=== PATIENT | female | born 1935 | race Caucasian/White ===

== ENCOUNTER 2019-08-05 17:35 | Emergency (ER) | payer MEDICARE, OTHER, SELFPAY ==
[2019-08-05 17:39] VITALS: PULSE 85; RESP 26; TEMP 36.3; O2SAT 84; BMI 13.7
[2019-08-05 17:47] VITALS: BP 201/74; PULSE 68; RESP 20; O2SAT 94
--- NOTE | 2019-08-05 17:51 | ED_ITS ---
Entered by Maty Church, acting as scribe for HPI - SOB/Dyspnea General: Chief Complaint: Shortness of Breath/Dyspnea Stated Complaint: sob Time Seen by Provider: 08/05/19 17:51 Source: patient and EMS Mode of arrival: EMS Limitations: no limitations History of Present Illness: HPI Narrative: 83 yo female presents with shortness of breath. pt and family states this started months ago but worsened this week. pt has had a cough. pt is suppose to wear oxygen at home. pt has a hx of COPD. pt denies any other symptoms at this time. MD elicited complaint: shortness of breath and cough Pertinent past history: COPD Onset (ago): week(s) Context: recent illness Timing: progressively worsening Severity: similar to previous episodes Exacerbating factors: exertion, coughing, stress and deep breaths Relieving factors: nothing Known history of: COPD Associated symptoms: Reports cough; Deny abdominal pain, chest pain, fever(s), polyuria or vomiting Treatment prior to arrival: oxygen (EMS) Related Data: Home oxygen amount: 3 liters Review of Systems Const: Denies: fever or chills Eyes: Denies: change in vision ENMT: Denies: throat pain or mouth pain Card: Denies: chest pain Resp: Reports: shortness of breath and non-productive cough GI: Denies: abdominal pain, vomiting or diarrhea : Denies: difficulty urinating Musc: Denies: back pain or joint pain Skin/Breast: Denies: rash Neuro: Denies: headache Psych: Denies: depression Endo: Denies: excessive urination Yg/Lymph: Denies: easy bruising All/Imm: Denies: hives PFSH ED PFSH: Statuses (acute, chronic, etc) shown below reflect problem list status as previously entered and may not be historically accurate Medical History History of COPD (Acute) Social History Smoking and tobacco status: former smoker Physical Exam Const: COMMON NORMALS: no apparent distress and healthy appearing HENMT: COMMON NORMALS: normocephalic and external nose normal HEAD & SCALP: normocephalic NOSE: external nose normal and no nasal discharge (nasal dischage) Eye: COMMON NORMALS: PERRL PUPIL: Yes PERRL Neck/C-Spine: COMMON NORMALS: full ROM and no lymphadenopathy Chest: COMMONS NORMALS: inspection of chest normal Resp: OTHER: Slight bilateral wheezing. Patient is in no respiratory distress. Cardio: COMMON NORMALS: regular rate and regular rhythm RATE: regular rate RHYTHM: regular rhythm GI: COMMON NORMALS: soft to palpation PALPATION: Yes soft Extremity: COMMON NORMALS: normal to inspection, full ROM and normal capillary refill Psych: COMMON NORMALS: mental status grossly normal and cooperative Skin: COMMON NORMALS: no rashes or lesions noted GENERAL SKIN EXAM: no rashes or lesions noted Course Vital Signs: Vital signs: Vital Signs Temperature 97.4 F L 08/05/19 17:39 Pulse Rate 78 08/05/19 19:25 Respiratory Rate 18 08/05/19 19:25 Blood Pressure 139/63 08/05/19 19:25 Pulse Oximetry 95 08/05/19 19:25 MDM - SOB/Dyspnea MDM Narrative: Medical decision making narrative: Patient presents with difficulty breathing likely COPD exacerbation. She has no signs of cardiac cause or pulmonary embolism. She feels improved after breathing treatment and is in no distress here. We will start her on steroids along with Keflex. She is to follow-up with her primary care doctor in 3 to 5 days and return if wor sening. Lab Data: Labs: Lab Results 08/05/19 08/05/19 Range/Units 18:19 18:19 WBC 6.1 (4.0-10.0) 10^3/ uL RBC 3.54 L (4.1-5.3) 10^6/u L Hgb 10.5 L (11.5-15.3) g/dL Hct 33.1 L (37.0-47.0) % MCV 93.5 (81-99) fL MCH 29.7 (28.0-34.0) pg MCHC 31.7 (30.0-36.0) g/dL RDW 13.2 (12.1-15.1) % Plt Count 225 (130-400) 10^3/c mm MPV 11.2 H (7.4-10.4) fL Neut % (Auto) 65.3 % Lymph % (Auto) 21.1 % [place] % (Auto) 9.3 % Eos % (Auto) 3.3 % Baso % (Auto) 0.8 % Neut # (Auto) 4.0 (1.8-7.7) 10^3/u L Lymph # (Auto) 1.3 (0.8-4.8) 10^3/u L [place] # (Auto) 0.6 (0.2-0.9) 10^3/u L Eos # (Auto) 0.2 (0.0-0.8) 10^3/u L Baso # (Auto) 0.1 (0.0-0.1) 10^3/u L Nucleated RBC % (a uto) 0 % Nucleated RBCs # 0.0 /100WBC Sodium 131 L (136-145) mmol/L Potassium 4.5 (3.5-5.1) mmol/L Chloride 92 L (98-107) mmol/L Carbon Dioxide 33 H (22-29) mmol/L Anion Gap 10.5 (5-19) BUN 18 (8-23) mg/dL Creatinine 0.8 (0.5-0.9) mg/dL Glucose 110 H (74-106) mg/dL Calcium 9.1 (8.8-10.2) mg/Dl Total Bilirubin 0.2 (0.15-1.2) mg/dL AST 25 (0-32) U/L ALT 18 (0-33) U/L Alkaline Phosphata se 76 (35-105) IU/L NT-Pro-B Natriuret Pep 1237 H (0-450) pg/mL Total Protein 6.1 L (6.6-8.7) g/dL Albumin 3.9 (3.5-5.2) g/dL Globulin 2.2 (1.3-4.6) g/dL Imaging Data^: CXR: Attestation: I personally reviewed and interpreted this imaging study as follows: My impression: no acute abnormality Discharge Plan Discharge Patient Disposition: Home, Self-Care Clinical Impression: Acute exacerbation of chronic obstructive airways disease Condition: Stable Prescriptions: New Keflex 500 mg capsule 500 mg PO Q6H 7 Days Qty: 28 RF: 0 prednisone 50 mg tablet 50 mg PO DAILY Qty: 5 RF: 0 Discharge Orders: Discharge Order (Routine); Ordered 08/05/19 Ordered By: Lyly Andersen Referrals: Varsha Perez MD [Primary Care Provider] - 4-7 days Discharge Diet: Advance as tolerated Discharge Activity: Resume usual activity Patient Instructions: Chronic Obstructive Pulmonary Disease (ED) Discharge Date/Time: 08/05/19 19:26 Coding Level of Care Code ED Laboratory Specialist for Chg Fwlinda The documentation recorded by the Ranjit weems Bridget Annette, accurately reflects the service I personally performed and the decisions made by Ganesh mann Korby, MD
--- NOTE | 2019-08-05 17:56 | XR_ITS ---
WS: [id number] CHEST XRAY TECHNIQUE: Portable chest. CLINICAL INFORMATION: sob COMPARISON: FINDINGS: Heart: Normal cardiac silhouette. Tortuous calcified thoracic aorta. Lungs: Advanced chronic emphysematous changes. Hyperinflation. No focal pneumonia. Bones: Normal visualized bony structures. XR/XR chest 1V portable [id number] IMPRESSION: No acute chest findings
[2019-08-05] MEDS: ipratropium-albuterol 3 mL Neb INHALATION (18:21)
[2019-08-05 18:22] VITALS: PULSE 62; RESP 14; O2SAT 98
[2019-08-05 18:24] VITALS: PULSE 63; RESP 14; O2SAT 99
[2019-08-05 18:42] LABS: Basophils # 0.1 10^3/uL (0.0-0.1); Basophils % 0.8 %; Eosinophils # 0.2 10^3/uL (0.0-0.8); Eosinophils % 3.3 %; Hematocrit 33.1 % (37.0-47.0); Hemoglobin 10.5 g/dL (11.5-15.3); Lymphocytes # 1.3 10^3/uL (0.8-4.8); Lymphocytes % 21.1 %; Mean Corpuscular HGB Conc 31.7 g/dL (30.0-36.0); Mean Corpuscular Hemoglobin 29.7 pg (28.0-34.0); Mean Corpuscular Volume 93.5 fL (81-99); Mean Platelet Volume 11.2 fL (7.4-10.4); Monocytes # 0.6 10^3/uL (0.2-0.9); Monocytes % 9.3 %; Neutrophils % 65.3 %; Nucleated Red Blood Cells % 0 %; Platelet Count 225 10^3/cmm (130-400); Red Blood Count 3.54 10^6/uL (4.1-5.3); Red Cell Distribution Width 13.2 % (12.1-15.1); White Blood Count 6.1 10^3/uL (4.0-10.0)
[2019-08-05 18:57] LABS: Alanine Aminotransferase 18 U/L (0-33); Albumin Level 3.9 g/dL (3.5-5.2); Alkaline Phosphatase 76 IU/L (35-105); Anion Gap 10.5 (5-19); Aspartate Amino Transferase 25 U/L (0-32); Blood Urea Nitrogen 18 mg/dL (8-23); Calcium 9.1 mg/Dl (8.8-10.2); Carbon Dioxide 33 mmol/L (22-29); Chloride 92 mmol/L (98-107); Globulin 2.2 g/dL (1.3-4.6); Glucose 110 mg/dL (74-106); NT Pro B Type Natriuretic Pept 1237 pg/mL (0-450); Potassium 4.5 mmol/L (3.5-5.1); Sodium 131 mmol/L (136-145); Total Bilirubin 0.2 mg/dL (0.15-1.2); Total Protein 6.1 g/dL (6.6-8.7)
[2019-08-05 19:11] VITALS: BP 133/75; PULSE 69; RESP 23; O2SAT 99
[2019-08-05] MEDS: FUROsemide 10 mg/mL SDV 4mL 40 MG IVP (19:15)
[2019-08-05 19:25] VITALS: BP 139/63; PULSE 78; RESP 18; O2SAT 95
== END 2019-08-05 19:26 | disposition home or self-care (01) ==
LOC: ER 19:18
PROVIDERS: Emergency Provider Emergency Medicine; Family Provider Internal Medicine; PCP Internal Medicine
DX: J44.1 Chronic obstructive pulmonary disease with (acute) exacerbation (principal); Z87.891 Personal history of nicotine dependence
CPT/HCPCS: 36415; 71045; 80053; 83880; 85025; 94640; 96374; 99281; J1940; J2930; J7611

== ENCOUNTER 2019-09-26 18:36 | Observation (INO) | payer MEDICARE, OTHER, SELFPAY ==
[2019-09-26] VITALS (26 sets, daily range): BP systolic 99–139; BP diastolic 47–77; PULSE 86–103; RESP 14–22; TEMP 36.5; O2SAT 87–100; BMI 15.0
--- NOTE | 2019-09-26 18:37 | ED_ITS ---
Entered by Dee Morton, acting as scribe for Steff Melchor HPI - SOB/Dyspnea General: Chief Complaint: Shortness of Breath/Dyspnea Stated Complaint: SHORTNESS OF BREATH Time Seen by Provider: 09/26/19 18:37 Source: EMS Mode of arrival: EMS Limitations: no limitations History of Present Illness: HPI Narrative: 83 yo f came to the er by [facility] for Shortness of breath. Onset has been on and off for a few weeks. Pt states that she just keeps getting worse. Pt states that she is not in pain just having trouble breathing and is not getting any better. Patient states that she is coughing up yellow-green sputum and has had a subjective fever at home. MD elicited complaint: shortness of breath Timing: constant Severity: moderate Exacerbating factors: lying flat Relieving factors: oxygen and other (breathing treatments) Treatment prior to arrival: oxygen and other (breathing treatments) Related Data: Home oxygen amount: 3 liters Review of Systems General: Reports: ROS unobtainable due to medical condition (Respiratory Distress) and other (negative unless marked) REPLACED BY [facility] ED PFSH: Medical History History of COPD Hyperkalemia Hypertension Respiratory failure Surgical History H/O: hysterectomy History of tonsillectomy Social History Smoking and tobacco status: former smoker Physical Exam Const: COMMON NORMALS: oriented x3 EXAM LIMITATIONS: no altered mental status GENERAL APPEARANCE: cooperative, in distress and appears older than stated age NUTRITIONAL APPEARANCE: cachectic ORIENTATION/CONSCIOUSNESS: Yes awake HENMT: COMMON NORMALS: normocephalic, head/scalp atraumatic, hearing grossly normal bilaterally, external ears normal, EAC's normal, external nose normal and moist oral mucous membranes HEAD & SCALP: normal to inspection, normocephalic and atraumatic FACE & SINUS: normal facial exam and face symmetric NOSE: external nose normal and nares normal EXTERNAL EAR: Yes external ears normal EXTERNAL AUDITORY CANAL: EAC's normal MOUTH: oral and palatal mucosa normal and tongue normal Eye: COMMON NORMALS: PERRL, EOMs intact bilaterally, conjunctivae normal and no scleral icterus GENERAL EYE: normal appearance of both eyes and normal light reflex CONJUNCTIVA: Yes conjunctivae normal SCLERA: sclerae normal CORNEA: Yes corneas normal PUPIL: Yes PERRL DIRECT OPHTHALMOSCOPY: Yes normal light reflex Neck/C-Spine: COMMON NORMALS: full ROM, no lymphadenopathy, supple, no meninge al signs and no JVD GENERAL: Yes normal visual inspection and Yes trachea midline CERVICAL SPINE: Yes cervical ROM normal Chest: COMMONS NORMALS: inspection of chest normal and palpation of chest normal Resp: EFFORT & INSPECTION: Yes paradoxical thoraco-abdominal movements and Yes audible wheezes AUSCULTATION: rhonchi, wheezes and diminished lung sounds Cardio: COMMON NORMALS: no JVD, regular rate, regular rhythm, S1 normal heart sound, S2 normal heart sound, no gallops, no clicks, no murmurs and no rub JUGULAR VENOUS DISTENTION: no JVD RATE: regular rate RHYTHM: regular rhythm HEART SOUNDS: S1 normal and S2 normal GI: COMMON NORMALS: soft to palpation, non-tender, no hepatosplenomegaly and no masses INSPECTION: Yes normal to inspection PALPATION: Yes soft and Yes no hepatosplenomegaly : COMMON NORMALS: Yes no CVA tenderness BLADDER/KIDNEY EXAM: Yes no CVA tenderness Back/Pelvis: COMMON NORMALS: no CVA tenderness, thoracic and lumbar spine normal to inspection, no thoracic nor lumbar tenderness and thoraco-lumbar ROM normal Extremity: COMMON NORMALS: normal to inspection, full ROM, normal capillary refill, no joint enlargement, no clubbing, cyanosis or edema and no calf tenderness Neuro: COMMON NORMALS: oriented x3, CN's II-XII intact bilaterally, moves all extremities, no focal motor deficits and no sensory deficits noted MENINGEAL SIGNS: Yes no meningeal signs Psych: COMMON NORMALS: mental status grossly normal, thought process normal, cooperative, affect normal, speech normal and activity/motor behavior normal SPEECH: Yes normal speech THOUGHT PROCESS: normal thought process Skin: COMMON NORMALS: no rashes or lesions noted, skin turgor normal, no jaundice, no petechiae and no mottling GENERAL SKIN EXAM: no rashes or lesions noted and turgor normal Course Vital Signs: Vital signs: Vital Signs Temperature 97.7 F 09/26/19 18:36 Pulse Rate 88 09/26/19 21:35 Respiratory Rate 16 09/26/19 21:35 Blood Pressure 117/72 09/26/19 21:35 Pulse Oximetry 93 09/26/19 21:35 MDM - SOB/Dyspnea MDM Narrative: Medical decision making narrative: The patient is markedly better after her breathing treatments. She is no longer in respiratory distress. She still has audible wheezing at times and expiratory wheezing on exam. She has a community-acquired pneumonia on CAT scan but no PE. I reviewed the case in full with Dr. Mak who is agreeable to admission. Lab Data: Attestation: I reviewed the patient's lab results. Labs: Lab Results 09/26/19 09/26/19 09/26/19 Range/Units 19:05 19:12 19:12 WBC 17.9 H (4.0-10.0) 10^3/ uL RBC 3.37 L (4.1-5.3) 10^6/u L Hgb 9.8 L (11.5-15.3) g/dL Hct 32.0 L (37.0-47.0) % MCV 95.0 (81-99) fL MCH 29.1 (28.0-34.0) pg MCHC 30.6 (30.0-36.0) g/dL RDW 14.9 (12.1-15.1) % Plt Count 284 (130-400) 10^3/c mm MPV 11.2 H (7.4-10.4) fL Neut % (Auto) 87.7 % Lymph % (Auto) 4.7 % Burnet % (Auto) 6.7 % Eos % (Auto) 0.1 % Baso % (Auto) 0.2 % Neut # (Auto) 15.7 H (1.8-7.7) 10^3/u L Lymph # (Auto) 0.8 (0.8-4.8) 10^3/u L [place]et # (Auto) 1.2 H (0.2-0.9) 10^3/u L Eos # (Auto) 0.0 (0.0-0.8) 10^3/u L Baso # (Auto) 0.0 (0.0-0.1) 10^3/u L Nucleated RBC % (a uto) 0 % Nucleated RBCs # 0.0 /100WBC D-Dimer (0-0.59) ug/mIFE U Specimen Type Arterial Sample Site Brachial, left ABG pH 7.45 (7.35-7.45) ABG pCO2 39.2 (35-45) mmHg ABG pO2 55.7 L (80.0-100.0) mmH g ABG HCO3 27.5 H (22-26) mmol/L ABG Base Excess 3.3 H (-2.0-2.0) mmol/ L Edilson Test N/a Hematocrit 34.4 L (37-47) % O2 Delivery Device Nc O2 Liters/Min 2.0 % Loading Inspector ID jmn Sodium 134 L (136-145) mmol/L Potassium 3.9 (3.5-5.1) mmol/L Chloride 94 L (98-107) mmol/L Carbon Dioxide 26 (22-29) mmol/L Anion Gap 17.9 (5-19) BUN 16 (8-23) mg/dL Creatinine 0.9 (0.5-0.9) mg/dL Glucose 167 H (65-115) mg/dL Lactic Acid (0.5-2.2) mmol/L Calcium 9.7 (8.5-10.5) mg/dL Magnesium 1.9 (1.7-2.3) mg/dL Total Bilirubin 0.3 (0.15-1.2) mg/dL AST 22 (0-32) U/L ALT 15 (0-33) U/L Alkaline Phosphata se 103 (35-105) IU/L Troponin T Baselin e (0-10) ng/mL Troponin T 120 Min coquille (0-10) ng/mL Delta Troponin T (0-10) ABS# NT-Pro-B Natriuret Pep 1456 H (0-450) pg/mL Total Protein 6.6 (6.6-8.7) g/dL Albumin 3.5 (3.5-5.2) g/dL Globulin 3.1 (1.3-4.6) g/dL 09/26/19 09/26/19 09/26/19 Range/Units 19:12 19:12 19:12 WBC (4.0-10.0) 10^3/ uL RBC (4.1-5.3) 10^6/u L Hgb (11.5-15.3) g/dL Hct (37.0-47.0) % MCV (81-99) fL MCH (28.0-34.0) pg MCHC (30.0-36.0) g/dL RDW (12.1-15.1) % Plt Count (130-400) 10^3/c mm MPV (7.4-10.4) fL Neut % (Auto) % Lymph % (Auto) % Burnet % (Auto) % Eos % (Auto) % Baso % (Auto) % Neut # (Auto) (1.8-7.7) 10^3/u L Lymph # (Auto) (0.8-4.8) 10^3/u L Burnet # (Auto) (0.2-0.9) 10^3/u L Eos # (Auto) (0.0-0.8) 10^3/u L Baso # (Auto) (0.0-0.1) 10^3/u L Nucleated RBC % (a uto) % Nucleated RBCs # /100WBC D-Dimer 1.71 H (0-0.59) ug/mIFE U Specimen Type Sample Site ABG pH (7.35-7.45) ABG pCO2 (35-45) mmHg ABG pO2 (80.0-100.0) mmH g ABG HCO3 (22-26) mmol/L ABG Base Excess (-2.0-2.0) mmol/ L Edilson Test Hematocrit (37-47) % O2 Delivery Device O2 Liters/Min % Loading Inspector ID Sodium (136-145) mmol/L Potassium (3.5-5.1) mmol/L Chloride (98-107) mmol/L Carbon Dioxide (22-29) mmol/L Anion Gap (5-19) BUN (8-23) mg/dL Creatinine (0.5-0.9) mg/dL Glucose (65-115) mg/dL Lactic Acid 2.6 H (0.5-2.2) mmol/L Calcium (8.5-10.5) mg/dL Magnesium (1.7-2.3) mg/dL Total Bilirubin (0.15-1.2) mg/dL AST (0-32) U/L ALT (0-33) U/L Alkaline Phosphata se (35-105) IU/L Troponin T Baselin e 26 H (0-10) ng/mL Troponin T 120 Min coquille (0-10) ng/mL Delta Troponin T (0-10) ABS# NT-Pro-B Natriuret Pep (0-450) pg/mL Total Protein (6.6-8.7) g/dL Albumin (3.5-5.2) g/dL Globulin (1.3-4.6) g/dL 09/26/19 Range/Units 20:38 WBC (4.0-10.0) 10^3/ uL RBC (4.1-5.3) 10^6/u L Hgb (11.5-15.3) g/dL Hct (37.0-47.0) % MCV (81-99) fL MCH (28.0-34.0) pg MCHC (30.0-36.0) g/dL RDW (12.1-15.1) % Plt Count (130-400) 10^3/c mm MPV (7.4-10.4) fL Neut % (Auto) % Lymph % (Auto) % Burnet % (Auto) % Eos % (Auto) % Baso % (Auto) % Neut # (Auto) (1.8-7.7) 10^3/u L Lymph # (Auto) (0.8-4.8) 10^3/u L Burnet # (Auto) (0.2-0.9) 10^3/u L Eos # (Auto) (0.0-0.8) 10^3/u L Baso # (Auto) (0.0-0.1) 10^3/u L Nucleated RBC % (a uto) % Nucleated RBCs # /100WBC D-Dimer (0-0.59) ug/mIFE U Specimen Type Sample Site ABG pH (7.35-7.45) ABG pCO2 (35-45) mmHg ABG pO2 (80.0-100.0) mmH g ABG HCO3 (22-26) mmol/L ABG Base Excess (-2.0-2.0) mmol/ L Edilson Test Hematocrit (37-47) % O2 Delivery Device O2 Liters/Min % Loading Inspector ID Sodium (136-145) mmol/L Potassium (3.5-5.1) mmol/L Chloride (98-107) mmol/L Carbon Dioxide (22-29) mmol/L Anion Gap (5-19) BUN (8-23) mg/dL Creatinine (0.5-0.9) mg/dL Glucose (65-115) mg/dL Lactic Acid (0.5-2.2) mmol/L Calcium (8.5-10.5) mg/dL Magnesium (1.7-2.3) mg/dL Total Bilirubin (0.15-1.2) mg/dL AST (0-32) U/L ALT (0-33) U/L Alkaline Phosphata se (35-105) IU/L Troponin T Baselin e (0-10) ng/mL Troponin T 120 Min coquille 28.59 H (0-10) ng/mL Delta Troponin T 2.59 (0-10) ABS# NT-Pro-B Natriuret Pep (0-450) pg/mL Total Protein (6.6-8.7) g/dL Albumin (3.5-5.2) g/dL Globulin (1.3-4.6) g/dL Imaging Data^: CT Chest: Radiologist's impression: [place] [address] CT Scan Report Signed Patient: Maria Isabel Mueller Unit #: [id number] : [id number] Age/Sex: 83 / F ADM Date: 09/26/19 Loc: ER Room/Bed: Attending Dr: Ordering Provider/Ordering MD: Steff Melchor DO Date of Service: 09/26/19 Procedure(s): CT angio chest PE protcl [id number] Accession Number(s): [id number] Report Number: [id number] PROCEDURE INFORMATION: Exam: CT Angiography Chest With Contrast Exam date and time: 09/26/2019 7:58 PM Age: 83 years old Clinical indication: Chest pain; Type not specified; Patient HX: C/O cp - cough and SOB; Additional info: Dyspnea, positive d-dimer TECHNIQUE: Imaging protocol: Computed tomographic angiography of the chest with intravenous contrast. 3D rendering: MIP and/or 3D reconstructed images were created by the technologist. Total DLP: 351.2 mGy-cm Radiation optimization: All CT scans at this facility use at least one of these dose optimization techniques: automated exposure control; mA and/or kV adjustment per patient size (includes targeted exams where dose is matched to clinical indication); or iterative reconstruction. Contrast material: VISI 320; Contrast volume: 75 ml; Contrast route: 20G; COMPARISON: CTA Chest-Pulmonary Emb [id number] 09/08/2017 11:23 AM FINDINGS: Pulmonary arteries: No visible pulmonary embolism. No visible pulmonary arterial thrombus. Aorta: Thoracic aorta nonaneurysmal. Extensive arterial sclerotic disease. Inferior vena cava: Early contrast filling in the inferior vena cava suggesting right sided heart failure. Lungs: Advanced centrilobular emphysema. Senile fibrosis. New subsegmental wedge shaped alveolar airspace disease lateral segment right middle lobe. This could reflect atelectasis and/or pneumonia. Suggest follow-up exam with in the next 3-6 months to re-evaluate to exclude a potential for underlying neoplasm. New 8 mm subpleural mixed ground-glass and partial nodular airspace process posterior basal segment left lower lobe with adjacent tiny satellite nodule under [address] at 3-6 months. Subsequent management based on the most suspicious nodule(s). (Susan et al., Fleischner Society, 2017). Pleural space: Unremarkable. No pneumothorax. No pleural effusion. Heart: Cardiomegaly with marked left ventricular hypertrophy. Coronary artery disease. Prominent left atrial appendage. Liver: Calcified granulomas of the liver and spleen. Splenomegaly. Pancreas: Adrenal glands and visualized portions of the pancreas appear stable since last evaluation. Kidneys and ureters: Stable angiomyolipoma inferior pole left kidney. Lymph nodes: Unremarkable. No enlarged lymph nodes. Bones/joints: Osteopenia/osteoporosis. Age-appropriate degenerative disease. No visible osteolytic or osteoblastic destructive process. Soft tissues: Unremarkable. CT/CT angio chest PE protcl [id number] IMPRESSION: 1. No visible pulmonary embolism. 2. Advanced centrilobular emphysema. 3. New subsegmental wedge-shaped alveolar airspace disease process lateral segment right middle lobe. This could reflect atelectasis and/or pneumonia. Suggest follow-up exam in 3-6 months. 4. New 8 mm subpleural mixed ground-glass and partial nodular airspace process left lower lobe with adjacent satellite nodule.Recommend CT at 3-6 months. Subsequent management based on the most suspicious nodule(s). (Susan et al., Fleischner Society, 2017). 5. Stable angiomyolipoma inferior pole left kidney. 6. Calcified granulomas of antecedent disease. 7. Cardiomegaly with marked left ventricular hypertrophy. 8. Coronary artery disease. 9. Evidence of right-sided cardiac failure. 10. Numerous other non urgent/nonemergent, chronic, and age related findings. Radiation Dose CTDIVOL = (mGy): DLP = 351.2 (mGy-cm) Dictated By: Kemal Kline Signed By: Kemal Kline Signed Date/Time: 09/26/192055 DD/ 53 EKG Data^: EKG 1: Attestation: I personally reviewed and interpreted this EKG as follows: EKG Interpretation Date: 09/26/19 EKG interpretation time: 18:53 Interpretation: Normal sinus rhythm at 94 beats a minute, nonspecific ST and T wave changes, LVH. EKG 2: EKG Interpretation Date: 09/26/19 EKG interpretation time: 20:44 Interpretation: Normal sinus rhythm at 87 beats a minute, nonspecific ST-T wave changes, LVH. Discharge Plan Discharge Patient Disposition: Placed in Observation Clinical Impression: Acute exacerbation of chronic obstructive airways disease Community acquired pneumonia Qualifiers: Laterality: right Lung location: middle lobe of lung Qualified Code(s): J18.9 - Pneumonia, unspecified organism Condition: Stable Referrals: Varsha Perez MD [Primary Care Provider] - Coding Level of Care Code ED Yard Goods Salesperson for Chg Fwd Exam Comprehensive The documentation recorded by the Praveen weems Stephanie Lyn, accurately reflects the service I personally performed and the decisions made by Jill mann Eli N Sep 26, 2019 18:36
--- NOTE | 2019-09-26 18:39 | XR_ITS ---
WS: [id number] XR chest 1V portable [id number] REASON FOR EXAM: cough FINDINGS: Right middle lobe now shows patchy alveolar infiltrates not seen on previous exam July [id number]. The lung hinojosa show hyperaeration decreased vascularity consistent with chronic obstructive pulmonar y disease. The heart is small there is arteriosclerotic changes seen. XR/XR chest 1V portable [id number] IMPRESSION: Early right middle lobe pneumonia. Chronic obstructive pulmonary disease Arteriosclerotic changes.
--- NOTE | 2019-09-26 18:40 | ECG_ITS ---
Measurements Intervals [place] Rate: 94 P: 83 MD: 117 QRS: 70 QRSD: 86 T: 89 QT: 367 QTc: 459 SINUS RHYTHM WITH SHORT MD INTERVAL WITH OCCASIONAL SUPRAVENTRICULAR PREMATURE COMPLEXES MINIMAL VOLTAGE CRITERIA FOR LVH, CONSIDER NORMAL VARIANT MODERATE ST DEPRESSION Compared to ECG 06/03/2019 23:04:14 Short MD interval now present ST (T wave) deviation now present T-wave abnormality no longer present Electronically Signed On 09-27-2019 8:16:59 TAX COLLECTION COORDINATOR by Peyton Holcomb M.D. [email or web address]
[2019-09-26] MEDS: ipratropium-albuterol 3 mL Neb 9 ML INHALATION (18:59)
--- NOTE | 2019-09-26 19:04 | PC.NURSE ---
Report received from ROWAN Herman and care transferred to ROWAN Amaya
[2019-09-26 19:16] LABS: ABG PCO2 39.2 mmHg (35-45); ABG PH Result 7.45 (7.35-7.45); Arterial Blood Gas Hematocrit 34.4 % (37-47); Base Excess ABG 3.3 mmol/L (-2.0-2.0); Blood Gas Sample Site Brachial, left; Blood Gas Sample Type Arterial; HCO3 ABG 27.5 mmol/L (22-26); Oxygen Device NC; PO2 ABG 55.7 mmHg (80.0-100.0)
[2019-09-26 19:23] LABS: Basophils % 0.2 %; Eosinophils % 0.1 %; Hemoglobin 9.8 g/dL (11.5-15.3); Lymphocytes # 0.8 10^3/uL (0.8-4.8); Lymphocytes % 4.7 %; Mean Corpuscular HGB Conc 30.6 g/dL (30.0-36.0); Mean Corpuscular Hemoglobin 29.1 pg (28.0-34.0); Mean Platelet Volume 11.2 fL (7.4-10.4); Monocytes # 1.2 10^3/uL (0.2-0.9); Monocytes % 6.7 %; Neutrophils # 15.7 10^3/uL (1.8-7.7); Neutrophils % 87.7 %; Nucleated Red Blood Cells % 0 %; Platelet Count 284 10^3/cmm (130-400); Red Blood Count 3.37 10^6/uL (4.1-5.3); Red Cell Distribution Width 14.9 % (12.1-15.1); White Blood Count 17.9 10^3/uL (4.0-10.0)
[2019-09-26 19:46] LABS: Lactic Sepsis W/Reflex 2.6 mmol/L (0.5-2.2)
[2019-09-26 19:47] LABS: D Dimer 1.71 ug/mIFEU (0-0.59)
[2019-09-26 19:50] LABS: Troponin(5th) Baseline 26 ng/mL (0-10)
--- NOTE | 2019-09-26 19:57 | CTR_ITS ---
PROCEDURE INFORMATION: Exam: CT Angiography Chest With Contrast Exam date and time: 09/26/2019 7:58 PM Age: 83 years old Clinical indication: Chest pain; Type not specified; Patient HX: C/O cp - cough and SOB; Additional info: Dyspnea, positive d-dimer TECHNIQUE: Imaging protocol: Computed tomographic angiography of the chest with intravenous contrast. 3D rendering: MIP and/or 3D reconstructed images were created by the technologist. Total DLP: 351.2 mGy-cm Radiation optimization: All CT scans at this facility use at least one of these dose optimization techniques: automated exposure control; mA and/or kV adjustment per patient size (includes targeted exams where dose is matched to clinical indication); or iterative reconstruction. Contrast material: VISI 320; Contrast volume: 75 ml; Contrast route: 20G; COMPARISON: CTA Chest-Pulmonary Emb [id number] 09/08/2017 11:23 AM FINDINGS: Pulmonary arteries: No visible pulmonary embolism. No visible pulmonary arterial thrombus. Aorta: Thoracic aorta nonaneurysmal. Extensive arterial sclerotic disease. Inferior vena cava: Early contrast filling in the inferior vena cava suggesting right sided heart failure. Lungs: Advanced centrilobular emphysema. Senile fibrosis. New subsegmental wedge shaped alveolar airspace disease lateral segment right middle lobe. This could reflect atelectasis and/or pneumonia. Suggest follow-up exam with in the next 3-6 months to re-evaluate to exclude a potential for underlying neoplasm. New 8 mm subpleural mixed ground-glass and partial nodular airspace process posterior basal segment left lower lobe with adjacent tiny satellite nodule under [address] at 3-6 months. Subsequent management based on the most suspicious nodule(s). (Susan et al., Fleischner Society, 2017). Pleural space: Unremarkable. No pneumothorax. No pleural effusion. Heart: Cardiomegaly with marked left ventricular hypertrophy. Coronary artery disease. Prominent left atrial appendage. Liver: Calcified granulomas of the liver and spleen. Splenomegaly. Pancreas: Adrenal glands and visualized portions of the pancreas appear stable since last evaluation. Kidneys and ureters: Stable angiomyolipoma inferior pole left kidney. Lymph nodes: Unremarkable. No enlarged lymph nodes. Bones/joints: Osteopenia/osteoporosis. Age-appropriate degenerative disease. No visible osteolytic or osteoblastic destructive process. Soft tissues: Unremarkable. CT/CT angio chest PE protcl [id number] IMPRESSION: 1. No visible pulmonary embolism. 2. Advanced centrilobular emphysema. 3. New subsegmental wedge-shaped alveolar airspace disease process lateral segment right middle lobe. This could reflect atelectasis and/or pneumonia. Suggest follow-up exam in 3-6 months. 4. New 8 mm subpleural mixed ground-glass and partial nodular airspace process left lower lobe with adjacent satellite nodule.Recommend CT at 3-6 months. Subsequent management based on the most suspicious nodule(s). (Susan et al., Fleischner Society, 2017). 5. Stable angiomyolipoma inferior pole left kidney. 6. Calcified granulomas of antecedent disease. 7. Cardiomegaly with marked left ventricular hypertrophy. 8. Coronary artery disease. 9. Evidence of right-sided cardiac failure. 10. Numerous other non urgent/nonemergent, chronic, and age related findings. Radiation Dose CTDIVOL = (mGy): DLP = 351.2 (mGy-cm)
[2019-09-26 19:58] LABS: Alanine Aminotransferase 15 U/L (0-33); Albumin Level 3.5 g/dL (3.5-5.2); Alkaline Phosphatase 103 IU/L (35-105); Anion Gap 17.9 (5-19); Aspartate Amino Transferase 22 U/L (0-32); Blood Urea Nitrogen 16 mg/dL (8-23); Calcium 9.7 mg/dL (8.5-10.5); Carbon Dioxide 26 mmol/L (22-29); Chloride 94 mmol/L (98-107); Globulin 3.1 g/dL (1.3-4.6); Glucose 167 mg/dL (65-115); Magnesium 1.9 mg/dL (1.7-2.3); NT Pro B Type Natriuretic Pept 1456 pg/mL (0-450); Potassium 3.9 mmol/L (3.5-5.1); Sodium 134 mmol/L (136-145); Total Bilirubin 0.3 mg/dL (0.15-1.2); Total Protein 6.6 g/dL (6.6-8.7)
[2019-09-26] MEDS: piperacillin-tazobactam 3.375 GM in sodium chloride 0.9% (plus) 50 ML IV (20:01)
--- NOTE | 2019-09-26 20:15 | PC.NURSE ---
PATIENT TO CT
[2019-09-26] MEDS: iodixanol 320 mg/mL 100mL Btl IV (20:30)
--- NOTE | 2019-09-26 20:40 | ECG_ITS ---
Measurements Intervals [place] Rate: 87 P: 76 WV: 123 QRS: 62 QRSD: 85 T: 85 QT: 379 QTc: 458 SINUS RHYTHM WITH OCCASIONAL VENTRICULAR PREMATURE COMPLEXES POSSIBLE LEFT ATRIAL ENLARGEMENT [-0.1mV P WAVE IN V1/V2] POSSIBLE LEFT VENTRICULAR HYPERTROPHY [VOLTAGE CRITERIA PLUS LAE OR QRS WIDENING] MODERATE ST DEPRESSION [0.05+ mV ST DEPRESSION] Compared to ECG 06/03/2019 23:04:14 Ventricular premature complex(es) now present ST (T wave) deviation now present T-wave abnormality no longer present Electronically Signed On 09-27-2019 8:21:04 AGED OR DISABLED CARER by Peyton Holcomb M.D. [id number]
--- NOTE | 2019-09-26 20:48 | PC.NURSE ---
EKG done at 2039 and shown to ER doctor
[2019-09-26 21:02] LABS: Troponin 5 2HR 28.59 ng/mL (0-10); Troponin 5 2HR Delta 2.59 ABS# (0-10)
[2019-09-26 21:06] LABS: Reflex Lactate Order REFLEX LACTIC ORDERD
--- NOTE | 2019-09-26 21:34 | PC.NURSE ---
FLU SWAB COLLECTED BY NURSE AND TAKEN TO LAB, NO PREVIOUS SWAB RECEIVED BY LAB, PATIENT DENIED BEING PREVIOUSLY SWABBED BEFORE SHIFT CHANGE.
[2019-09-26 21:59] LABS: Influenza A by IFA Negative (Negative); Influenza B by IFA Negative (Negative)
--- NOTE | 2019-09-26 22:02 | P.HP_ITS ---
Providers/Chief Complaint Admitting Physician: Carlos Arreola MD Primary Care Provider: Varsha Perez MD Chief Complaint: SHORTNESS OF BREATH History of Present Illness Maria Isabel Mueller is a 83 year old female who carries diagnoses of oxygen dependent 3 L [id number] COPD, anxiety, came in with chief complaint of not able to breathe. Patient is stating that she was in her usual state of health i.e., lives with her son, however independent for daily activities, non-smoker, compliant with her medications, lately she has not been able to sleep very well and has been feeling anxious, today she thought she had a very bad panic attack, she did not know what to do and got out of her house and started yelling. Her son was not at home, neighbors saw her and called EMS. Patient is stating that she has been losing weight, she has very low appetite, has not experienced any flulike symptoms however she has chronic rhinorrhea. She is currently not driving, she does not go out to do grocery shopping. She was brought in ER, diagnostic showed relative hypoxia on 2 L nasal cannula, afebrile, flu panel was taken, positive for leukocytosis, high lactic acid, mild decrease in hemoglobin from her baseline current hemoglobin 9.8, normal blood pressure, d-dimer high, CTA chest rule out PE but positive for possible pneumonia of right middle lobe. She has received 1 dose of ceftriaxone and azithromycin in the ER. Review of Systems Const: Reports: chills, body aches, change in weight, fatigue and malaise; Denies: fever Eyes: Denies: change in vision ENMT: Denies: throat pain Card: Denies: chest pain or palpitations Resp: Reports: shortness of breath; Denies: productive cough or non-productive cough GI: Denies: abdominal pain or nausea : Denies: flank pain Musc: Denies: neck pain Skin/Breast: Denies: rash Neuro: Denies: headache Psych: Reports: anxiety, mood swings and memory loss Endo: Denies: excessive urination Yg/Lymph: Denies: easy bruising All/Imm: Denies: hives Medications/Allergies Home Medications Medication Instructions Recorded Confirmed Last Taken Type albuterol sulfate 2.5 mg INHALATION Q4H PRN 09/26/19 09/26/19 09/26/19 History albuterol sulfate See Rx Instructions .ROUTE .COMPLEX 09/26/19 09/26/19 09/26/19 History amlodipine See Rx Instructions .ROUTE .COMPLEX 09/26/19 09/26/19 Unknown History citalopram See Rx Instructions .ROUTE .COMPLEX 09/26/19 09/26/19 Unknown History diazepam See Rx Instructions .ROUTE .COMPLEX 09/26/19 09/26/19 Unknown History escitalopram oxalate See Rx Instructions .ROUTE .COMPLEX 09/26/19 09/26/19 09/26/19 History ipratropium-albuterol [Combivent 1 puff INHALATION Q4H 09/26/19 09/26/19 09/26/19 History Respimat] lorazepam See Rx Instructions .ROUTE .COMPLEX 09/26/19 09/26/19 09/26/19 History mirtazapine 15 mg PO DAILY 09/26/19 09/26/19 Unknown History montelukast 10 mg PO DAILY 09/26/19 09/26/19 Unknown History trazodone See Rx Instructions .ROUTE .COMPLEX 09/26/19 09/26/19 Unknown History Allergies Allergy/AdvReac Type Severity Reaction Status Date / Time No Known Allergies Allergy Verified 08/05/19 17:44 PFSH Acute PFSH: Medical History (Updated 09/26/19 @ 22:04 by Carlos Arreola MD) Anxiety History of COPD Hyperkalemia Hypertension Oxygen dependent Respiratory failure Surgical History (Updated 09/26/19 @ 22:03 by Carlos Arreola MD) H/O: hysterectomy History of tonsillectomy Social History Smoking and tobacco status: former smoker Vitals/I&O/Wt Last Vital Signs Temp 97.7 F 09/26/19 18:36 Pulse 101 H 09/26/19 22:00 Resp 18 09/26/19 22:00 BP 117/72 09/26/19 21:35 Pulse Ox 92 09/26/19 22:00 09/26/19 09/26/19 09/26/19 06:59 14:59 22:59 Intake Total 50 / 50 Balance 50 / 50 Weight last 48 hrs Weight 36.287 kg Physical Exam Narrative: EXAM NARRATIVE: Very pleasant elderly female, hard of hearing, Malnourished No active restaurant distress, Saturating well on 2 L nasal cannula Mild wheezing on expiration bilaterally however diminished breath sounds, S1, S2 no signs of heart failure Abdomen soft nontender nondistended Neurologically nonfocal exam Patient show signs of anxiety, she has been fidgeting and trying to calm herself down and was playing with EKG leads Skin does not show any signs ischemia gangrene ulcer Data : 09/26/19 19:12 09/26/19 19:12 Micro: Microbiology 09/26/19 19:12 Blood Culture - Preliminary Blood SPECIMEN COLLECTED 09/26/19 19:14 Blood Culture - Preliminary Blood SPECIMEN COLLECTED A&P Assessment and plan (1) Community acquired pneumonia: Status: Acute Qualifiers: Laterality: right Lung location: middle lobe of lung Qualified Code(s): J18.9 - Pneumonia, unspecified organism Code(s): J18.9 - Pneumonia, unspecified organism Additional A&P Information Community-acquired pneumonia No active respiratory stress No worsening of COPD Currently saturating well on 2 L nasal cannula She was admitted with similar complaint in May 2019, She has high lactic acid with leukocytosis however afebrile not tachycardic or tachypnea Prednisone 40 mg for 5 days Flu swab Pneumonia severity index is very low, would not get blood culture, CT rule out PE, Acute on chronic normocytic anemia: Blood pressure stable, We will avoid using anticoagulation for DVT for now, will use SCDs, monitor her hemoglobin, Baseline hemoglobin is around 11.5, in July it was 10.5, today is 9.8 We will check FOBT Anxiety: Patient has been suffering from weight loss, I would continue mirtazapine, her medications needs to be reviewed, she is not aware of medication dosages However on previous visit I see Remeron 50 mg at bedtime, Lexapro 10 mg daily, Ativan 0.5 mg 3 times a day as needed, trazodone 50 mg at bedtime, High BNP without any active signs of fluid overload on clinical exam however considering her COPD which is oxygen dependent she most likely has right heart failure without pulmonary edema considering soft blood pressure I would advise use of Lasix at the moment Patient is full code DVT prophylaxis: SCDs because of anemia Attestations Medical Necessity Statement*: Anticipating discharge less than 48 hours currently needs management of community-acquired pneumonia, if leukocytosis trending down she might be discharge less than 48-hour Time Spent in Patient Care: 45 Coding Level of Care Code Acute Leasing Sales Consultant for Chg Fwd Diagnoses Community acquired pneumonia J18.9 Laterality: right Lung location: middle lobe of lung
[2019-09-26 22:35] LABS: Lactic Acid level (Lactate) 1.8 mmol/L (0.5-2.2)
[2019-09-26] MEDS: sodium chloride 0.9% 1,000 ML 100 ML IV (23:54)
[2019-09-26] MEDS: mirtazapine 15 mg Tablet PO (23:55)
[2019-09-27] VITALS (10 sets, daily range): BP systolic 112–137; BP diastolic 47–82; PULSE 64–89; RESP 16–18; TEMP 36.6–36.9; O2SAT 80–96
--- NOTE | 2019-09-27 00:40 | ECG_ITS ---
Measurements Intervals [place] Rate: 72 P: 81 TX: 131 QRS: 74 QRSD: 85 T: 88 QT: 427 QTc: 468 SINUS RHYTHM POSSIBLE LEFT ATRIAL ENLARGEMENT [-0.1mV P WAVE IN V1/V2] NONSPECIFIC T-WAVE ABNORMALITY Compared to ECG 06/03/2019 23:04:14 Left ventricular hypertrophy no longer present T-wave abnormality still present Electronically Signed On 09-27-2019 19:06:52 REGULATORY AFFAIRS ANALYST by Carlos Ingram M.D. [email or web address]
[2019-09-27 01:49] LABS: Troponin 5 6HR 23.44 ng/mL (0-10)
[2019-09-27 01:54] LABS: Troponin 5 6HR Delta -2.56 ng/L (0-12)
[2019-09-27 06:50] LABS: Basophils % 0.1 %; Hematocrit 32.7 % (37.0-47.0); Lymphocytes # 0.5 10^3/uL (0.8-4.8); Lymphocytes % 3.2 %; Mean Corpuscular HGB Conc 30.6 g/dL (30.0-36.0); Mean Corpuscular Hemoglobin 29.9 pg (28.0-34.0); Mean Corpuscular Volume 97.9 fL (81-99); Mean Platelet Volume 11.9 fL (7.4-10.4); Monocytes # 0.2 10^3/uL (0.2-0.9); Monocytes % 1.1 %; Neutrophils % 95.1 %; Nucleated Red Blood Cells % 0 %; Platelet Count 206 10^3/cmm (130-400); Red Blood Count 3.34 10^6/uL (4.1-5.3); White Blood Count 15.7 10^3/uL (4.0-10.0)
[2019-09-27 07:04] LABS: Anion Gap 16.2 (5-19); Blood Urea Nitrogen 18 mg/dL (8-23); Calcium 9.2 mg/dL (8.5-10.5); Carbon Dioxide 26 mmol/L (22-29); Chloride 98 mmol/L (98-107); Glucose 165 mg/dL (65-115); Osmolality Calculated 282 mOsm/kg (285-295); Potassium 4.2 mmol/L (3.5-5.1); Sodium 136 mmol/L (136-145)
[2019-09-27] MEDS: ipratropium-albuterol 3 mL Neb INHALATION ×2 (08:40→14:36)
[2019-09-27] MEDS: azithromycin 250 mg Tablet PO (09:17)
[2019-09-27] MEDS: cefTRIAXone 1,000 MG in sodium chloride 0.9% (plus) 50 ML 100 MG IV (09:17)
[2019-09-27] MEDS: sodium chloride 0.9% 1,000 ML 100 ML IV (09:17)
--- NOTE | 2019-09-27 13:08 | PC.NURSE ---
Patient granddaughter Maria Isabel Velazquez wants to be called when patient gets discharged [phone].
--- NOTE | 2019-09-27 13:12 | PC.CHAP ---
Pastoral Care Encounter/Spiritual Assessment Type of Contact [] Declined putter in visit [] Patient/Family/Request visit [] Outpatient visit [] Follow-up visit [] Physician referral [] Code/Alert [X] Routine visit [] Staff referral [] Actively dying [] Patient sleeping [] Family support [] [] Out of room [] Palliative care [] [] Receiving care in room [] Pre-surgical visit [] Trauma [] Long length of stay [] ICU visit [] Other: Relational/Emotional Strength [] Patient feels connected with others/family/visitors/staff [] Distress [] Loneliness/isolation [] Abandonment Spirituality of Patient [] Person of Kerrie [] Attends [employer] of their [place] [] Believes in Prayer [] Reads Bible or Jew materials [] There are Spiritual issues to be addressed Carrier Associate Interventions [] Prayer [] Active listening [] Non-anxious presence [] Spiritual/emotional support [] Crisis/trauma care [] Spiritual counseling [] Bereavement support [] Provided bereavement packet [] Provided Bible/devotional materials [] Provided toy/stuffed animal, coloring book to patient or family member [] Provided Communion [] Anointing/[place] [] Salvation [] Completed spiritual assessment [] Other: Impact on Illness or Injury [] Angry [] Fearful [] Anxious [] Often cries [] Exhaustion [] Unable to work [] Unable to attend restoration [] Unable to walk/stand [] Unable to read [] Unable to drive [] Unable to eat/drink [] Unable to sleep [] Unable to be with family [] Patient intubated [] Other: Summary Time spent with patient
--- NOTE | 2019-09-27 15:59 | PM.DCS ---
Discharge Providers Date of Admission: 09/26/19 21:25 Date of Discharge: September 27, 2019 Attending Provider at Admission: Carlos Arreola MD Attending Provider at Discharge: Sachin Campo Primary Care Provider: Varsha Perez MD Diagnoses at Discharge Discharge Diagnosis (1) Community acquired pneumonia: Status: Acute Qualifiers: Laterality: right Lung location: middle lobe of lung Qualified Code(s): J18.9 - Pneumonia, unspecified organism Reason for Visit Reason for Visit: Reason For Visit: SHORTNESS OF BREATH Hospital Course Hospital Course: Very pleasant 83-year-old lady with history of COPD, former smoker, on chronic 2 L oxygen at home, sometimes going up to 3, has been needing to use her nebulizer more often due to shortness of breath, was placed in observation due to finding of pneumonia, right middle lobe, as well as incidental finding of [address] scan. No PE noted. No sepsis, although does have leukocytosis. Today reports she is feeling better, stronger and stronger after return home. We will have her complete a course of antibiotic with Levaquin. Continue nebulization at home. She does get quite anxious at times, and discussed with her son regarding her condition, and that she should continue anxiety medication as needed for symptoms of air hunger. Consider referral to pulmonology. Blood pressure is borderline high. We will add metoprolol. Incidentally noted possible LVH on CT scan. Will order follow-up with outpatient echocardiogram. Please follow-up the results. Physical Exam Const: COMMON NORMALS: no apparent distress and oriented x3 GENERAL APPEARANCE: frail appearing OTHER: Pleasant, awake, alert, somewhat forgetful, which she says has been happening more often, mildly anxious elderly lady. Very thin build. HENMT: COMMON NORMALS: oropharynx normal Neck/C-Spine: COMMON NORMALS: no JVD Resp: COMMON NORMALS: normal respiratory effort and clear to auscultation bilaterally AUSCULTATION: clear to auscultation bilaterally OTHER: Slightly coarse lung sounds Cardio: COMMON NORMALS: no JVD, regular rhythm, S1 normal heart sound, S2 normal heart sound and no murmurs RHYTHM: regular rhythm HEART SOUNDS: S1 normal and S2 normal GI: COMMON NORMALS: normal to inspection, nondistended, normoactive bowel sounds, soft to palpation and non-tender PALPATION: Yes soft Extremity: COMMON NORMALS: no joint enlargement and no pedal edema Neuro: COMMON NORMALS: oriented x3 and moves all extremities Skin: COMMON NORMALS: no rashes or lesions noted GENERAL SKIN EXAM: no rashes or lesions noted Discharge Data Data Completed and Pending: Completed Studies During Hospitalization Category Date Time Status CT angio chest PE protcl [id number] Stat Cat Scan 09/26/19 19:57 Completed XR chest 1V patsy ble [id number] Stat Exams 09/26/19 18:39 Completed Pending at discharge Category Date Time Status Blood Culture Sta t Lab 09/26/19 19:14 Results Labs from last 24 hours 09/27/19 09/27/19 09/27/19 05:55 05:55 01:15 WBC 15.7 H RBC 3.34 L Hgb 10.0 L Hct 32.7 L MCV 97.9 MCH 29.9 MCHC 30.6 RDW 15.0 Plt Count 206 MPV 11.9 H Neut % (Auto) 95.1 Lymph % (Auto) 3.2 Trigg % (Auto) 1.1 Eos % (Auto) 0.0 Baso % (Auto) 0.1 Neut # (Auto) 15.0 H Lymph # (Auto) 0.5 L Trigg # (Auto) 0.2 Eos # (Auto) 0.0 Baso # (Auto) 0.0 Nucleated RBC % (a uto) 0 Nucleated RBCs # 0.0 D-Dimer Specimen Type Sample Site ABG pH ABG pCO2 ABG pO2 ABG HCO3 ABG Base Excess Edilson Test Hematocrit O2 Delivery Device O2 Liters/Min [employer] ID Sodium 136 Potassium 4.2 Chloride 98 Carbon Dioxide 26 Anion Gap 16.2 BUN 18 Creatinine 1.0 H Glucose 165 H Calculated Osmolal ity 282 L Lactic Acid Lactic Acid (Sepsi s) Calcium 9.2 Magnesium Total Bilirubin AST ALT Alkaline Phosphata se Troponin I 6 Hour 23.44 H Troponin I Hi Sens Del -2.56 L Troponin T Baselin e Troponin T 120 Min [place] Troponin T NT-Pro-B Natriuret Pep Total Protein Albumin Globulin Influenza Type A A g POC Influenza B Ag 09/26/19 09/26/19 09/26/19 22:15 21:28 20:38 WBC RBC Hgb Hct MCV MCH MCHC RDW Plt Count MPV Neut % (Auto) Lymph % (Auto) Trigg % (Auto) Eos % (Auto) Baso % (Auto) Neut # (Auto) Lymph # (Auto) Trigg # (Auto) Eos # (Auto) Baso # (Auto) Nucleated RBC % (a uto) Nucleated RBCs # D-Dimer Specimen Type Sample Site ABG pH ABG pCO2 ABG pO2 ABG HCO3 ABG Base Excess Edilson Test Hematocrit O2 Delivery Device O2 Liters/Min [employer] ID Sodium Potassium Chloride Carbon Dioxide Anion Gap BUN Creatinine Glucose Calculated Osmolal ity Lactic Acid Lactic Acid (Sepsi s) 1.8 Calcium Magnesium Total Bilirubin AST ALT Alkaline Phosphata se Troponin I 6 Hour Troponin I Hi Sens Del Troponin T Baselin e Troponin T 120 Min [place] 28.59 H Delta Troponin T 2.59 NT-Pro-B Natriuret Pep Total Protein Albumin Globulin Influenza Type A A g Negative POC Influenza B Ag Negative 09/26/19 09/26/19 09/26/19 19:12 19:12 19:12 WBC RBC Hgb Hct MCV MCH MCHC RDW Plt Count MPV Neut % (Auto) Lymph % (Auto) Trigg % (Auto) Eos % (Auto) Baso % (Auto) Neut # (Auto) Lymph # (Auto) Trigg # (Auto) Eos # (Auto) Baso # (Auto) Nucleated RBC % (a uto) Nucleated RBCs # D-Dimer 1.71 H Specimen Type Sample Site ABG pH ABG pCO2 ABG pO2 ABG HCO3 ABG Base Excess Edilson Test Hematocrit O2 Delivery Device O2 Liters/Min [employer] ID Sodium Potassium Chloride Carbon Dioxide Anion Gap BUN Creatinine Glucose Calculated Osmolal ity Lactic Acid 2.6 H Lactic Acid (Sepsi s) Calcium Magnesium Total Bilirubin AST ALT Alkaline Phosphata se Troponin I 6 Hour Troponin I Hi Sens Del Troponin T Baselin e 26 H Troponin T 120 Min [place] Troponin T NT-Pro-B Natriuret Pep Total Protein Albumin Globulin Influenza Type A A g POC Influenza B Ag 09/26/19 09/26/19 09/26/19 19:12 19:12 19:05 WBC 17.9 H RBC 3.37 L Hgb 9.8 L Hct 32.0 L MCV 95.0 MCH 29.1 MCHC 30.6 RDW 14.9 Plt Count 284 MPV 11.2 H Neut % (Auto) 87.7 Lymph % (Auto) 4.7 Trigg % (Auto) 6.7 Eos % (Auto) 0.1 Baso % (Auto) 0.2 Neut # (Auto) 15.7 H Lymph # (Auto) 0.8 Trigg # (Auto) 1.2 H Eos # (Auto) 0.0 Baso # (Auto) 0.0 Nucleated RBC % (a uto) 0 Nucleated RBCs # 0.0 D-Dimer Specimen Type Arterial Sample Site Brachial, left ABG pH 7.45 ABG pCO2 39.2 ABG pO2 55.7 L ABG HCO3 27.5 H ABG Base Excess 3.3 H Edilson Test N/a Hematocrit 34.4 L O2 Delivery Device Nc O2 Liters/Min 2.0 [employer] ID jmn Sodium 134 L Potassium 3.9 Chloride 94 L Carbon Dioxide 26 Anion Gap 17.9 BUN 16 Creatinine 0.9 Glucose 167 H Calculated Osmolal ity Lactic Acid Lactic Acid (Sepsi s) Calcium 9.7 Magnesium 1.9 Total Bilirubin 0.3 AST 22 ALT 15 Alkaline Phosphata se 103 Troponin I 6 Hour Troponin I Hi Sens Del Troponin T Baselin e Troponin T 120 Min [place] Troponin T NT-Pro-B Natriuret Pep 1456 H Total Protein 6.6 Albumin 3.5 Globulin 3.1 Influenza Type A A g POC Influenza B Ag Vitals: Last Vital Signs Temp 98.0 F 09/27/19 11:43 Pulse 89 09/27/19 14:41 Resp 17 09/27/19 14:36 BP 137/54 09/27/19 11:43 Pulse Ox 95 09/27/19 14:36 Discharge Plan Discharge Patient Disposition: Home, Self-Care Condition: Stable Prescriptions: New levofloxacin [Levaquin] 750 mg tablet 750 mg PO DAILY 6 Days Qty: 6 RF: 0 metoprolol tartrate 25 mg tablet 12.5 mg PO BID Qty: 30 RF: 0 Continued trazodone 50 mg tablet See Rx Instructions .ROUTE .COMPLEX RF: 0 amlodipine 5 mg tablet See Rx Instructions .ROUTE .COMPLEX RF: 0 citalopram 20 mg tablet See Rx Instructions .ROUTE .COMPLEX RF: 0 lorazepam 0.5 mg tablet See Rx Instructions .ROUTE .COMPLEX RF: 0 montelukast 10 mg tablet 10 mg PO DAILY RF: 0 mirtazapine 15 mg tablet 15 mg PO DAILY RF: 0 albuterol sulfate 90 mcg/actuation HFA aerosol inhaler See Rx Instructions .ROUTE .COMPLEX RF: 0 diazepam 5 mg tablet See Rx Instructions .ROUTE .COMPLEX RF: 0 escitalopram oxalate 10 mg tablet See Rx Instructions .ROUTE .COMPLEX RF: 0 Combivent Respimat 20-100 mcg/actuation Mist 1 puff INHALATION Q4H RF: 0 albuterol sulfate 2.5 mg /3 mL (0.083 %) Solution For Nebulization 2.5 mg INHALATION Q4H PRN (Reason: Shortness Of Breath) Qty: 75 RF: 0 Discharge Orders: Discharge Order (Routine); Ordered 09/27/19 Ordered By: Sachin Campo Other Ambulatory Orders: CV echo complete* [id number] (Routine) Timeframe: 1 Week Facility: [facility] - Location: Radiology Ordered By: Sachin Campo Referrals: Varsha Perez MD [Primary Care Provider] - 4-7 days (Please call Sunday to set up a follow up appointment.) Discharge Diet: Cardiac Discharge Activity: Increase activity as tolerated and Oxygen as instructed Activity Restrictions/Additional Instructions: Please discuss with your primary care provider follow-up CAT scan for resolution of pneumonia and follow-up on 8 mm left lung nodule in 3-6 months. Discussed with your primary care doctor referral to a lung doctor. Please follow-up with your primary care doctor regarding anemia. Discussed regarding testing for hidden blood in stool as this sample could not be obtained during this admission. At home avoid taking NSAIDs like ibuprofen, Aleve, etc. as they may lead to inflammation of your stomach and contribute to anemia. Discharge Attestations Time Spent in Discharge Care*: greater than 30 min Quality Metrics Clinical Quality Measures During this hospital stay, did patient experience: None Coding Level of Care Code Acute House Mover Helper for Lig Fwd Diagnoses Community acquired pneumonia J18.9 Laterality: right Lung location: middle lobe of lung
--- NOTE | 2019-09-30 15:41 | PC.SOCIAL ---
Clarified with Dr Jahaira gill to take Levaquin remaining 6 days he reviewed EKG on 09/26/2019. Updated [facility] pharmacy
== END 2019-09-27 17:00 | disposition home or self-care (01) ==
LOC: ER 21:33 → MEDSURG 21:59
PROVIDERS: Admitting Provider Internal Medicine; Emergency Provider Emergency Medicine; Family Provider Internal Medicine; PCP Internal Medicine; Visit Provider Internal Medicine
DX: J18.9 Pneumonia, unspecified organism (principal); J44.9 Chronic obstructive pulmonary disease, unspecified; Z99.81 Dependence on supplemental oxygen; I10 Essential (primary) hypertension; Z87.891 Personal history of nicotine dependence
CPT/HCPCS: 12345; 36415; 36600; 71045; 71275; 80048; 80053; 82803; 83605; 83735; 83880; 84484; 85025; 85378; 87040; 87804; 93005; 94640; 96360; 96361; 96365; 99284; 99285; G0378; J0696; J2543; J7030; Q0144; Q9967